=== PATIENT | female | born 1980 | race Hispanic/Latino ===

== ENCOUNTER 2017-07-10 09:38 | Day surgery (SDC) | payer OTHER ==
[2017-07-10 10:18] VITALS: BMI 32.5
[2017-07-10 10:40] VITALS: BP 107/65; TEMP 97.9
--- NOTE | 2017-07-10 12:20 | PDOC.LDHP ---
Labor and Delivery H&P Chief complaint: other (deceleration noted in PNC clinic) HPI: 36 yo @ 37.4 weeks by 1TUS at 10wks with pmhx of SLE and antiphospholipid syndrome diagnosed during current , presents from [facility] d/t a late deceleration during pt's BPP/NST apt today, BPP was normal. OB HX: 1st : IUFD @ 40weeks 2nd-6th pregnancies: with scheduled inductions. 7th (current): Mom diagnosed with SLE and APS on lovenox and aspirin, baby otherwise healthy with normal ultrasounds Current gestational age (weeks): 37 (37.4) Due date: 07/27/16 Dating criteria: last menstrual period, first trimester ultrasound (10.4weeks, c /w LMP) Grav: 7 (grand multiparity) Para: 6 ([id number]) OB History Details: see above Current complications: other (hx of IUFD, current mom diagnosed with SLE and APS) Past Medical History: SLE APS --on lovenox and aspirin Current medications: pre- vitamins, other (lovenox and aspirin) Previous surgical history: none Allergies/Adverse Reactions: Allergies Allergy/AdvReac Type Severity Reaction Status Date / Time No Known Drug Allergies Allergy Verified 07/10/17 10:22 Social history: none - Physical Exam Vital signs reviewed and normal: yes General: NAD, resting Heart: RRR Lungs: CTAB Abdomen: gravid Extremeties: no edema FHT: category 1 [place] contractions every: irritability, not having active painful contractions - OB Labs Blood type: A RH: positive Antibody Screen: negative HIV: negative RPR: negative HEPSAg: unknown 1 hour GCT: positive 3 hour GTT: negative GBS: unknown Rubella: immune - Assessment 36 @37.4 weeks by 10.4wk 1TUS c/w LMP presents from [facility] for a late deceleration during pt's NST/BPP apt today, here for prolonged monitoring. - Plan -: Monitor mom and baby for four hours. Provide Mom with a normal diet. Okay to discharge pending strip. So far the strip has been a category 1 with accelerations. Consider dc of aspirin since mom is over 36 weeks. Plan for induction one week prior to due date, which would place the induction on 2016.
--- NOTE | 2017-07-12 00:54 | PRG ---
DATE OF SERVICE: 07/10/2017 ATTENDING NOTE At the time of presentation, Ms. Zarco is a 36-year-old 7, para 6 female at 36 weeks, who was diagnosed with antiphospholipid antibody syndrome. She was undergoing her biophysical profile at Clinic and had a total BPP of 10 out of 10, but one late deceleration was noted. The patient was sent for prolonged monitoring. Her complete JOSÉ MANUEL was 16. The patient was seen in conjunction with the resident. Please see their note. The patient had 4 hours of category 1 tracing. She appreciated good movement. She was discharged to home with routine obstetric precautions. RENETTA
== END 2017-07-10 14:50 | disposition home or self-care (01) ==
LOC: L&D/OP 09:38
PROVIDERS: ATTEND Obstetrics & Gynecology Obstetrics
DX: O76 Abnormality in fetal heart rate and rhythm complicating labor and delivery (principal); M32.9 Systemic lupus erythematosus, unspecified; O99.113 Other diseases of the blood and blood-forming organs and certain disorders involving the immune mechanism complicating pregnancy, third trimester; D68.61 Antiphospholipid syndrome; Z3A.37 37 weeks gestation of pregnancy; Z79.01 Long term (current) use of anticoagulants; Z79.82 Long term (current) use of aspirin; Z79.899 Other long term (current) drug therapy
CPT/HCPCS: 99282

== ENCOUNTER 2017-07-22 13:48 | Inpatient (IN) | payer MEDICAID, OTHER, SELFPAY ==
[2017-07-22] MEDS ORDERED: Promethazine HCl 25 MG/ML VIAL IM PRN (22:52)
[2017-07-22] MEDS ORDERED: Ondansetron HCl/PF 4 MG/2 ML Vial IVP PRN (22:52)
[2017-07-22] MEDS ORDERED: Acetaminophen 500 MG TAB PO PRN (22:52)
[2017-07-22] MEDS ORDERED: Diphenoxylate HCl/Atropine Tablet PO PRN (22:52)
[2017-07-22] MEDS ORDERED: HYDROcodone/Acetaminophen 5/325 mg Tablet PO PRN ×2 (22:52)
[2017-07-22] MEDS ORDERED: Misoprostol 200 MCG TAB PR PRN (22:52)
[2017-07-22] MEDS ORDERED: Lidocaine 1% (PF) 30 ML VIAL SC PRN (22:52)
[2017-07-22] MEDS ORDERED: Carboprost 250 MCG/ML AMP IM PRN (22:52)
[2017-07-22] MEDS ORDERED: LR / Pitocin 40 units/1000 ml 1,000 ML IV PRN (22:52)
[2017-07-22] MEDS ORDERED: Methylergonovine 0.2 MG/ML VIAL IM PRN (22:52)
[2017-07-22 23:05] VITALS: BMI 32.8
[2017-07-22] MEDS ORDERED: LR 500 ML/Oxytocin 10 units 500 ML IV SCH (23:15)
[2017-07-22] MEDS: Lactated Ringer's 1,000 ML IV SCH (23:31)
[2017-07-23 00:06] LABS: Hemoglobin 11.7 g/dL (12.0-16.0); Mean Corpuscular HGB CONC 32.8 g/dL (32.0-36.0); Mean Corpuscular Hemoglobin 27.8 pg (27.0-31.0); Mean Corpuscular Volume 84.7 fl (81.0-99.0); Mean Platelet Volume 6.7 fL (7.4-10.4); Platelet Count 442 thou/uL (130-400); RBC Distribution Width 13.2 % (11.5-14.5); Red Blood Cell (RBC) Count 4.19 mill/uL (4.20-5.40); White Blood Cell (WBC) Count 11.9 thou/uL (4.8-10.8)
[2017-07-23 00:37] LABS: Glucose 174 mg/dL (70-105)
[2017-07-23 00:48] LABS: Syphilis Antibody Nonreactive (Nonreactive); Syphilis Antibody Index 0.07 S/CO (<1.00 Non-Reactive)
[2017-07-23 00:49] LABS: HBSAg Index 0.25 S/CO (0-0.99); Hep B Surf Ag Non-Reactive S/CO (NonReactive)
--- NOTE | 2017-07-23 04:00 | PDOC.LDPN ---
Labor & Delivery Progress Note - Subjective Subjective: painful contractions - Objective Vital signs reviewed and normal: yes General: breathing through contractions Dilation: 4 Effacement: 50% Station: -2 FHT: category 1 [place] contractions every: every 3 minutes Plan: continue plan of care, pitocin for augmentation <Pamela Feldman - Last Filed: 07/23/17 03:59> Attending Addendum - Attending Addendum I personally evaluated the patient and discussed the management with Dr. Feldman I agree with the History, Examination, Assessment and Plan documented above with any addition or exceptions noted below. 36 yo female at 39.3 wks by LMP/10.4 wk sono admitted for IOL 2/2 APLS and hx of IUFD at 40 wks. Now 4 cm. Continue pit per protocol. Repeat exam prn or 4 hours. If unchanged AROM and IUPC placement. A1GDM with elevated glucose on admission. Will continue accuchecks. Add SSI vs insulin drip to keep glucose around 100 for active labor. Will notify NICU of complications related to . Miso in room. Blood ready. Send placenta. ABrayMD <Karmen Newell - Last Filed: 07/23/17 07:35>
--- NOTE | 2017-07-23 04:30 | PDOC.LDHP ---
Labor and Delivery H&P HPI: 36 yo @ 39.2 wks with antiphospholipid antibody syndrome and glucose intolerance presents for induction. Pt has been on lovenox and aspirin daily. She last took her lovenox on Friday at noon. Denies vaginal bleeding, fluid loss , or discharge. Endorses intermittent contractions. OB hx: 1st : IUFD 3 boys and 2 girls, uncomplicated, 's [employer] Hx: Last pap: NILM and negative for HPV Current gestational age (weeks): 39 (39.2) Due date: 07/27/17 Dating criteria: first trimester ultrasound Grav: 7 Para: 6 ([id number]) OB History Details: see above Current complications: other (Antiphospholipid antibody syndrome, glucose intolerance-diet controlled) Current medications: pre-bret vitamins, other (lovenox, aspirin) Previous surgical history: none Social history: none - Physical Exam Vital signs reviewed and normal: yes General: NAD Heart: RRR Lungs: CTAB Abdomen: gravid Extremeties: no edema FHT: category 1 (accels) [place] contractions every: intermittant - Vaginal Exam cm dilated: 4 Effacement: 50% Station: -2 - OB Labs Blood type: A RH: positive Antibody Screen: negative HIV: negative RPR: negative HEPSAg: negative 1 hour GCT: positive 3 hour GTT: negative (glucose intolerance, diet controlled) GBS: negative Additional Labs: Cr: .8 AST 17 H/H 1235 Plt: 246 Pr/Cr .079 complement c3 129 (nl) complement c4 21 (nl) ssa/ssb antibody: negative dsdna: negative gonorrhea/chlamydia: negative antiphospholipid antibody IgG and IgM: negative anticardiolipin: negative beta-2 glycoprotein IgM: positive X 2 uric acid: 2.8 1 hr glucose: 161 3 hr: fasting 83, 1 hr 200, 2 hour 139, 3 hour 86 - Assessment 36 yo with antiphospholipid antibody syndrome presents for a medically indicated induction, with a gaines score of 7. - Plan -: Plan: pitocin for induction, labor checks every 4 hours <Pamela Feldman - Last Filed: 07/23/17 04:26> <Karmen Newell - Last Filed: 07/23/17 07:25> Allergies/Adverse Reactions: Allergies Allergy/AdvReac Type Severity Reaction Status Date / Time No Known Drug Allergies Allergy Verified 07/22/17 22:55 Attending Addendum - Attending Addendum I personally evaluated the patient and discussed the management with Dr. Feldman I agree with the History, Examination, Assessment and Plan documented above with any addition or exceptions noted below. 36 yo female at 39.2 wks by LMP/10.4 wk sono admitted for IOL 2/2 APLS and hx of IUFD at 40 wks. Cephalic. EFW 8 to 8.5 lbs. IOB and anatomy reviewed. 3T negative. GBS negative. Favorable cervix. Gaines of 7. Will start pitocin. Repeat exam prn or in 4 hours. Consider AROM at next exam. On ASA. Has been off Lovenox since 07/21/17 at 12:00. No side effects. Will restart either 4 to 6 hours depending on delivery type and continue for 6 wks pp. A1GDM check glucose at admission and continue as indicated. RODERICK Riggs <Karmen Newell - Last Filed: 07/23/17 07:25>
[2017-07-23] MEDS: Lactated Ringer's 1,000 ML IV SCH (04:46)
--- NOTE | 2017-07-23 05:00 | PDOC.LDHP ---
Labor and Delivery H&P Allergies/Adverse Reactions: Allergies Allergy/AdvReac Type Severity Reaction Status Date / Time No Known Drug Allergies Allergy Verified 07/22/17 22:55
--- NOTE | 2017-07-23 06:54 | PDOC.LDPN ---
Labor & Delivery Progress Note - Subjective Subjective: comfortable - Objective Vital signs reviewed and normal: yes General: NAD, resting Uterine fundus: non tender SVE: 06:35 Dilation: 4 Effacement: 50% Station: -3 FHT: category 1, variability present [place] contractions every: q2-3 min - Assessment (1) Elective induction of labor planned Code(s): [id number] - Current Visit: Yes Status: Acute Comment: @ 39.2 wks presents for IOL for Antiphospholipid syndrome with history of stillbirth -Started on pitocin; currently at 18 -4/50/-3 at 6:35 -Recheck in 1 hour and consider amniotomy and IUPC placement -Patient d/c'd lovenox for induction -Continue ASA (2) Antiphospholipid antibody syndrome complicating Code(s): O99.119 - OT DIS OF BLD/BLD-FORM ORG/IMMUN MECHNSM COMP PREG,UNSP TRI ; D68.61 - ANTIPHOSPHOLIPID SYNDROME Current Visit: Yes Status: Acute Comment: -Here for IOL at 39.2 wks -Lovenox d/c'd for IOL -Continue ASA -Hx of stillbirth (3) Glucose intolerance (impaired glucose tolerance) Code(s): R73.02 - IMPAIRED GLUCOSE TOLERANCE (ORAL) Current Visit: Yes Status: Acute Comment: -diet controlled -BG 174 on admission Plan: continue plan of care <Leisa Peña - Last Filed: 07/23/17 06:49> Attending Addendum - Attending Addendum I personally evaluated the patient and discussed the management with Dr. Peña I agree with the History, Examination, Assessment and Plan documented above with any addition or exceptions noted below. 36 yo female at 39.3 wks by LMP/10.4 wk sono admitted for IOL 2/2 APLS and hx of IUFD at 40 wks. Remains unchanged since last SVE. Continue pit per protocol. Repeat exam in 1 hour. If unchanged AROM and IUPC placement. A1GDM with elevated glucose on admission. Will continue accuchecks. Add SSI vs insulin drip to keep glucose around 100 for active labor. Will notify NICU of complications related to . Miso in room. Blood ready. Send placenta. ABrayMD <Karmen Newell - Last Filed: 07/23/17 07:33>
--- NOTE | 2017-07-23 07:50 | PDOC.LDPN ---
Labor & Delivery Progress Note - Subjective Subjective: painful contractions - Objective Vital signs reviewed and normal: yes General: breathing through contractions Uterine fundus: non tender Dilation: 5 Effacement: 50% Station: -2 FHT: category 1 (140/mod/no accel/no decel) [place] contractions every: 2-4 min AROM: bloody fluid IUPC placed: yes - Assessment (1) Elective induction of labor planned Code(s): [id number] - Current Visit: Yes Status: Acute Comment: @ 39.2 wks presents for IOL for Antiphospholipid syndrome with history of stillbirth -Started on pitocin; currently at 18 -Patient d/c'd lovenox for induction -Continue ASA (2) Antiphospholipid antibody syndrome complicating Code(s): O99.119 - OTH DIS OF BLD/BLD-FORM ORG/IMMUN MECHNSM COMP PREG,UNSP TRI ; D68.61 - ANTIPHOSPHOLIPID SYNDROME Current Visit: Yes Status: Acute Comment: -Here for IOL at 39.2 wks -Lovenox d/c'd for IOL -Continue ASA -Hx of stillbirth (3) Glucose intolerance (impaired glucose tolerance) Code(s): R73.02 - IMPAIRED GLUCOSE TOLERANCE (ORAL) Current Visit: Yes Status: Acute Comment: -diet controlled -BG 174 on admission, 112 on recheck -Continue 1-2 hr accuchecks with mild sliding scale Plan: pitocin for augmentation <Shelley Olivera - Last Filed: 07/23/17 09:31> Attending Addendum - Attending Addendum I personally evaluated the patient and discussed the management with Dr. Olivera. I agree with the History, Examination, Assessment and Plan documented above with any addition or exceptions noted below. Induced Labor tolerated. Category 1 strip. Continue active mgt as above. <Bennett Samaniego - Last Filed: 07/24/17 09:59>
--- NOTE | 2017-07-23 09:33 | PDOC.LDPN ---
Labor & Delivery Progress Note - Subjective Subjective: painful contractions - Objective Vital signs reviewed and normal: yes General: breathing through contractions Uterine fundus: non tender Dilation: 7 Effacement: 90% Station: -1 FHT: category 1 (140/mod/no accel/early decel) [place] contractions every: 1-4 min - Assessment (1) Elective induction of labor planned Code(s): [id number] - Current Visit: Yes Status: Acute Comment: @ 39.2 wks presents for IOL for Antiphospholipid syndrome with history of stillbirth -On pitocin -Patient d/c'd lovenox for induction -Continue ASA (2) Antiphospholipid antibody syndrome complicating Code(s): O99.119 - OTH DIS OF BLD/BLD-FORM ORG/IMMUN MECHNSM COMP PREG,UNSP TRI ; D68.61 - ANTIPHOSPHOLIPID SYNDROME Current Visit: Yes Status: Acute Comment: -Here for IOL at 39.2 wks -Lovenox d/c'd for IOL -Continue ASA -Hx of stillbirth (3) Glucose intolerance (impaired glucose tolerance) Code(s): R73.02 - IMPAIRED GLUCOSE TOLERANCE (ORAL) Current Visit: Yes Status: Acute Comment: -diet controlled -BG 174 on admission, 112 on recheck -Continue 1-2 hr accuchecks with mild sliding scale
[2017-07-23] MEDS ORDERED: Ondansetron HCl/PF 4 MG/2 ML Vial IVP PRN (11:18)
[2017-07-23] MEDS ORDERED: Acetaminophen/Codeine 30-300mg Tablet PO PRN (11:18)
[2017-07-23] MEDS ORDERED: Benzocaine/Menthol 20-0.5% 60 ML CAN TOP PRN (11:18)
[2017-07-23] MEDS ORDERED: Preparation H Ointment 28 GM TUBE PR PRN (11:18)
[2017-07-23] MEDS ORDERED: Bisacodyl 10 MG SUPP PR PRN (11:18)
[2017-07-23] MEDS ORDERED: LR / Pitocin 40 units/1000 ml 1,000 ML IV SCH (11:18)
[2017-07-23] MEDS ORDERED: Milk Of Magnesia 30 ML UDCUP PO PRN (11:18)
[2017-07-23] MEDS ORDERED: Lanolin Ointment 7 GM TUBE TOP PRN (11:18)
[2017-07-23] MEDS ORDERED: Adacel (T-DAP) 0.5 ML VIAL IM ONE (11:18)
[2017-07-23] MEDS ORDERED: Ibuprofen 800 MG TAB PO SCH (14:00)
[2017-07-23] MEDS: Ferrous Sulfate 325 MG TAB PO SCH (15:13)
[2017-07-23] MEDS: Docusate Calcium (SURFAK) 240 MG CAP PO SCH (22:17)
[2017-07-23] MEDS: Enoxaparin Sodium 40 MG/0.4 ML SYRINGE SC SCH (22:18)
[2017-07-23] MEDS: HYDROcodone/Acetaminophen 5/325 mg Tablet PO PRN (22:21)
--- NOTE | 2017-07-24 06:34 | DN-2 ---
DELIVERING PHYSICIAN: Shelley Olivera M.D. MEDICAL PHYSICIAN: ATTENDING PHYSICIAN: Bennett Samaniego M.D. PROCEDURE: Spontaneous vaginal delivery. ANESTHESIA: None. ESTIMATED BLOOD LOSS: 200 mL PREOPERATIVE DIAGNOSES: 1. Term intrauterine in labor. 2. Antiphospholipid antibody syndrome. 3. Glucose intolerance. 4. Advanced maternal age. POSTOPERATIVE DIAGNOSES: 1. Term intrauterine , delivered. 2. Antiphospholipid antibody syndrome. 3. Glucose intolerance. 4. Advanced maternal age. INDICATION: A 36-year-old female, -0-0-5, now P7-0-0-6 at 39 weeks and 2 days who delivered a v iable male infant at 0942. Following an uneventful antepartum course, a vigorous male was delivered over an intact perineum in the ERIC position. Anterior shoulder and then remainder of body delivered. Nuchal cord was noted and removed and reduced easily. The head was held down and mouth and nares w ere bulb suctioned. Cord clamped and cut after delayed cord clamping and cord blood collected. Plac enta delivered intact with 3-vessel cord noted. Fundal massage was performed and the fundus was firm . The cervix and vagina were inspected and found to be free of lacerations. went to nursery in good condition for routine care. Apgars were 8 and 8 at 1 and 5 minutes, respectively. T he patient tolerated the delivery well and went to after routine recovery care.
[2017-07-24] MEDS: HYDROcodone/Acetaminophen 5/325 mg Tablet PO PRN ×2 (06:58→15:21)
[2017-07-24] MEDS ORDERED: Enoxaparin Sodium 40 MG/0.4 ML SYRINGE SC SCH (09:00)
[2017-07-24] MEDS: Docusate Calcium (SURFAK) 240 MG CAP PO SCH ×2 (09:09→21:22)
[2017-07-24] MEDS: Ibuprofen 600 MG TAB PO SCH ×2 (09:09→21:22)
[2017-07-24] MEDS: Ferrous Sulfate 325 MG TAB PO SCH ×2 (09:09→16:29)
--- NOTE | 2017-07-24 10:38 | PDOC.PP ---
Post Progress Note Post Day #: 1 PO intake tolerated: yes Flatus: yes Ambulation: yes Vital Signs (12 hours) Temp Pulse Resp BP 07/24/17 07:44 98.2 F 75 20 105/57 L 07/24/17 07:40 98.2 F 75 20 07/24/17 04:40 98.0 F 68 18 94/54 L 07/24/17 00:30 98.0 F 66 20 106/52 L Weight Weight 83.915 kg - Physical Examination General: NAD Cardiovascular: no m/r/g, RRR Respiratory: clear to auscultation bilaterally, non-labored breathing Abdominal: + bowel sounds, lochia (minimal), no distention, appropriately TTP Fundus firm & at: umbilicus Extremities: negative homans (B) Neurological: no gross focal deficits Psychiatric: A&Ox3, normal affect Result Diagrams: 07/22/17 23:30 07/22/17 23:30 Additional Labs: Post Labs Blood Type A POSITIVE 07/22/17 23:30 Hep Bs Antigen Non-Reactive S/CO (NonReactive) 07/22/17 23:30 (1) Elective induction of labor planned Code(s): [id number] - Status: Acute (2) Antiphospholipid antibody syndrome complicating Code(s): O99.119 - OTH DIS OF BLD/BLD-FORM ORG/IMMUN MECHNSM COMP PREG,UNSP TRI ; D68.61 - ANTIPHOSPHOLIPID SYNDROME Status: Acute (3) Glucose intolerance (impaired glucose tolerance) Code(s): R73.02 - IMPAIRED GLUCOSE TOLERANCE (ORAL) Status: Acute - Assessment/Plan 1. PPD #1 - Meeting all PP milestones - Feels overall poorly and not confident with today - Appreciate Zoe's assistance - Consider D/C later today if pain well-controlled and no issues with infant 2. 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 Glucose intolerance - Accuchecks WNL - Will D/C 4. Grand multiparity - Discussed further desire for childbearing and considering LARC - Will re-address at PP visit in 2 weeks
[2017-07-24] MEDS: Enoxaparin Sodium 40 MG/0.4 ML SYRINGE SC SCH (21:22)
--- NOTE | 2017-07-25 06:18 | PDOC.PP ---
Post Progress Note Post Day #: 2 Subjective: Feeling well. No concerns or complaints this morning and feels is going slightly better. She would like to meet with Zoe again today if possible. PO intake tolerated: yes Flatus: yes Ambulation: yes Vital Signs (12 hours) Temp Pulse Resp BP 07/24/17 19:17 98.6 F 71 18 107/54 L Weight Weight 83.915 kg - Physical Examination General: NAD Cardiovascular: no m/r/g, RRR Respiratory: clear to auscultation bilaterally Abdominal: + bowel sounds, lochia (scant), no distention, appropriately TTP Extremities: negative homans (B) Neurological: no gross focal deficits Psychiatric: A&Ox3, normal affect Result Diagrams: 07/22/17 23:30 07/22/17 23:30 Additional Labs: Post Labs Blood Type A POSITIVE 07/22/17 23:30 Hep Bs Antigen Non-Reactive S/CO (NonReactive) 07/22/17 23:30 (1) Elective induction of labor planned Code(s): [id number] - Status: Acute (2) Antiphospholipid antibody syndrome complicating Code(s): O99.119 - OTH DIS OF BLD/BLD-FORM ORG/IMMUN MECHNSM COMP PREG,UNSP TRI ; D68.61 - ANTIPHOSPHOLIPID SYNDROME Status: Acute (3) Glucose intolerance (impaired glucose tolerance) Code(s): R73.02 - IMPAIRED GLUCOSE TOLERANCE (ORAL) Status: Acute - Assessment/Plan 1. PPD #2 - Meeting all PP milestones - Feeling better today and more confident with breast/bottle feeding - Appreciate Zoe's assistance - Consider D/C later today if pain well-controlled and no issues with 2. APL syndrome - Continue qHS lovenox 40mg x6w pp - Continue ASA 81mg x6w pp - Discussed need for [facility] follow-up with patient today - Will give information on [facility] and she has been seen at [facility] in the past 3. Glucose intolerance - Accuchecks WNL 4. Grand multiparity - Discussed further desire for childbearing and considering LARC - Will re-address at PP visit in 2 weeks
[2017-07-25 07:46] VITALS: BP 101/56; TEMP 98.5
[2017-07-25] MEDS: Docusate Calcium (SURFAK) 240 MG CAP PO SCH (08:39)
[2017-07-25] MEDS: Ferrous Sulfate 325 MG TAB PO SCH (08:39)
[2017-07-25] MEDS: Ibuprofen 600 MG TAB PO SCH (08:39)
[2017-07-25 12:52] LABS: HIV (1/2) Antibody/Antigen Non-Reactive (NonReactive); HIV 1/2 INDEX 0.16 S/CO (<1.00); Hep C IgG Ab Non-Reactive (NonReactive); Hep C Index 0.19 S/CO (0-0.79)
== END 2017-07-25 17:10 | disposition home or self-care (01) | DRG 775 ==
LOC: L&D 22:24 → 3SW 07-23 12:19
PROVIDERS: ADMIT Student in an Organized Health Care Education/Training Program; ATTEND Student in an Organized Health Care Education/Training Program
PROC: 10E0XZZ Delivery of Products of Conception, External Approach (ICD-10-PCS; principal; 2017-07-23)
PROC: 3E033VJ Introduction of Other Hormone into Peripheral Vein, Percutaneous Approach (ICD-10-PCS; 2017-07-23)
DX: O99.12 Other diseases of the blood and blood-forming organs and certain disorders involving the immune mechanism complicating childbirth (principal); D68.61 Antiphospholipid syndrome; Z3A.39 39 weeks gestation of pregnancy; Z37.0 Single live birth; O24.429 Gestational diabetes mellitus in childbirth, unspecified control
CPT/HCPCS: 36416; 82947; 85027; 86780; 86803; 86850; 86900; 86901; 87340; 87389; 88307; J1650; J2001; J7120

== ENCOUNTER 2020-04-28 08:18 | Outpatient (CLI) | payer OTHER ==
[2020-04-28 17:21] LABS: SARS-CoV-2 MS2 Positive; SARS-CoV-2 N Gene Negative; SARS-CoV-2 S Gene Negative; SARS-CoV-2 by NAA Not Detected (NotDetected); SARS-CoV-2 orf1ab Negative
== END 2020-04-28 08:19 | disposition home or self-care (01) ==
LOC: LABBT 08:18
PROVIDERS: ATTEND Family Medicine
DX: Z20.828 Contact with and (suspected) exposure to other viral communicable diseases (principal)
CPT/HCPCS: 87635; U0003

== ENCOUNTER 2020-05-01 18:00 | Inpatient (IN) | payer MEDICAID, OTHER, SELFPAY ==
[2020-05-01 21:20] VITALS: BMI 32.2
[2020-05-01] MEDS ORDERED: Promethazine HCl 25 MG/ML VIAL IM PRN (22:22)
[2020-05-01] MEDS ORDERED: Acetaminophen 500 MG TAB PO PRN (22:22)
[2020-05-01] MEDS ORDERED: Lidocaine 1% (PF) 30 ML VIAL SC PRN (22:22)
[2020-05-01] MEDS ORDERED: hydrALAZINE 20 MG/ML VIAL SLOW IVP PRN (22:22)
[2020-05-01] MEDS ORDERED: Ibuprofen 800 MG TAB PO PRN (22:22)
[2020-05-01] MEDS ORDERED: NS / Oxytocin 40 units/1000ml 1,000 ML IV PRN (22:22)
[2020-05-01] MEDS ORDERED: Ondansetron PF 4 MG/2 ML Vial IVP PRN (22:22)
[2020-05-01] MEDS ORDERED: Penicillin G 2.5 MILL.units 2.5 MILL.UNITS in Premix Bag 1 BAG IVPB SCH (22:30)
[2020-05-01] MEDS ORDERED: Penicillin G Potassium 5 MILL.UNITS in Sodium Chloride 0.9% 100 ML IVPB SCH (22:30)
[2020-05-01] MEDS: Lactated Ringer's 1,000 ML IV SCH (22:55)
--- NOTE | 2020-05-01 23:09 | PDOC.FPROB ---
FMR OB H&P: HPI - History of Present Illness Chief Complaint: mIOL due to APLS Indentification: @ 37 wga by LMP/9.5 wk sono History of Present Illness: Patient presents to L&D today for IOL. She reports that she is feeling well and denies feeling contractions. She endorses movement. She reports that she was told to stop taking her Lovenox 24 hrs prior to delivery and she last took it on 04/30. She denies vaginal bleeding, LOF, headache, change in vision, dysuria. Patient is GBS positive and has A2GDM on metformin. Patient is also AMA and has been taking daily aspirin this . Primary Care Physician: PNC: Jeremiah FMR OB H&P: Current - Care : 8 Para: 6 Gestational age: 37 Due date: 05/22/2020 Dating Criteria: LMP/9.5 wk sono Course/Complications: APLS, AMA, A2GDM, Hx of IUFD - OB Labs Blood type: A RH: positive Antibody Screen: negative RPR: negative HepBsAg: negative Rubella: immune Gonorrhea: negative Chlamydia: negative 3 hour GTT: 105/179/127 A1c: 5.6 H&H: 13.2/36.6 Platelets: 246 FMR OB H&P: History - Past Medical History PMH: Antiphospholipid syndrome (APLS), Lupus? pt has not been seen by rheum since 2016 - OB History OB History: 7 term 1 IUFD at 40 wga Hx of macrosomia, hx of IUFD, hx of A1GDM in previous pregnancies, AMA Denies PPH, shoulder dystocia - [employer] History [employer] History: Menarche: 14 Menstrual frequency 5 days Denies STIs - Surgical History Sx History: [place] teeth - Social History Social History: Denies t/a/d - Family History Family History: HTN, RA, DM, thyroid, childhood ca FMR OB H&P: Medications - Current Home Medications: Medication Instructions Recorded Confirmed Type Vit,Calc76/Iron/Folic 1 tab PO DAILY 07/10/17 05/01/20 History [Prenatabs Rx Tablet] Aspirin [Aspir-Low] 81 mg PO DAILY #30 tablet. 07/25/17 05/01/20 Rx Enoxaparin Sodium [Lovenox] 40 mg SC DAILY #30 syringe 07/25/17 05/01/20 Rx metFORMIN [Glucophage] 2 tab PO BID 05/01/20 05/01/20 History Allergies/Adverse Reactions: Allergies Allergy/AdvReac Type Severity Reaction Status Date / Time No Known Drug Allergies Allergy Verified 07/22/17 22:55 FMR OB H&P: ROS - Review of Systems General: denies: fever/chills, weight/appetite/sleep changes Eyes: denies: vision changes, double vision ENT: denies: nasal congestion, rhinorrhea Cardiovascular: denies: chest pain, palpitation, edema Respiratory: denies: cough, congestion, shortness of breath Gastrointestinal: denies: abdominal pain, diarrhea, constipation Genitourinary (Female): denies: dysuria, vaginal discharge, vaginal bleeding Musculoskeletal: denies: pain, swelling Neurologic: denies: numbness, headache Integumentary: denies: itching, rash Psychological: denies: depression, anxiety FMR OB H&P: Vital Signs - Maternal Vital signs: BP: 116/55 P: 77 RR: 18 Temp: 98.3 - Heart Tones Baseline: 135 Variability: moderate Acceleration: present Deceleration: absent Category: category 1 [place] contractions every: minimal; ~2 over 20 min FMR OB H&P: Physical Exam - Physical Exam General: NAD, awake, alert and oriented HEENT: normocephalic and atraumatic, EOMI, grossly normal vision, grossly normal hearing Neck: supple, FROM Heart: RRR, normal S1/S2, no murmurs/rubs/gallops General: CTAB, no respiratory distress, good air movement Abdomen: gravid, non-tender Musculoskeletal: FROM in all four extremities Neurological: cranial nerves II through XII intact, sensation to pain,touch and proprioception grossly normal Skin: no rash, no jaundice Lymphatic: no unusual bruising or bleeding, no purpura, no petechia Psychiatric: intact recent and remote memory, good judgement and insight, normal mood and affect - Pelvic Exam Vulva: normal hair distribution, appropriate pauline stage SVE: 08/07/-2 Gaines score: 4 Membranes: intact Presentation: vertex FMR OB H&P: A/P - Problem List (1) Intrauterine Current Visit: Yes Status: Acute Code(s): Z34.90 - ENCNTR FOR SUPRVSN OF NORMAL , UNSP, UNSP TRIMESTER (2) Gestational diabetes Current Visit: Yes Status: Acute Code(s): O24.419 - GESTATIONAL DIABETES MELLITUS IN , UNSP CONTROL (3) Antiphospholipid antibody syndrome complicating Current Visit: Yes Status: Acute Code(s): O99.119 - OTH DIS OF BLD/BLD-FORM ORG/IMMUN MECHNSM COMP PREG,UNSP TRI; D68.61 - ANTIPHOSPHOLIPID SYNDROME Disposition: 39 yo at 37 wga who presents to L&D for mIOL due to APLS mIOL for antiphospholipid syndrome - not currently feeling contractions, toco shows ~2 contractions over 20 minutes - SVE: 08/07/-2 @ 2230 - Gaines score: 4, posterior and soft - Fetus: vertex confirmed on US - FHT: 135, moderate variability, + accels, no decels - Cytotec placed ~2330 - next check at 0330 APLS - patient has been on lovenox this , advised to hold dosing 24 hours prior to delivery - last dose taken: 04/30 - will need lovenox for 6 wks PP per records A2GDM - on metformin - Q4Hr glucose checks during latent labor, Q1Hr during active - Glucose on admission: 86 Hx of Macrosomia - aware - [place] of 45% on 04/18 Hx of IUFD - aware AMA - aware Discussion: This H&P was discussed with Dr. Willsi who agrees with the above documentation and plan. Addendum - Attending - Attending Attestation Date/Time: 05/02/20 3551 I personally evaluated the patient and discussed the management with Dr. Alatorre. I agree with the History, Examination, Assessment and Plan documented above with any addition or exceptions noted below. mIOL for APLS, poorly controlled A2DM, h/o IUFD upon MFM recs. Cervical ripening.
[2020-05-01] MEDS ORDERED: Misoprostol 100 MCG TAB VAG SCH (23:15)
[2020-05-01 23:19] LABS: Hemoglobin 13.2 g/dL (12.0-16.0); Mean Corpuscular Hemoglobin 31.4 pg (27.0-31.0); Mean Corpuscular Volume 87.3 fL (78.0-98.0); Mean Platelet Volume 8.8 fL (7.4-10.4); Platelet Count 246 thou/uL (130-400); RBC Distribution Width 12.1 % (11.5-14.5); Red Blood Cell (RBC) Count 4.19 mill/uL (4.20-5.40); White Blood Cell (WBC) Count 9.4 thou/uL (4.8-10.8)
[2020-05-01 23:50] LABS: HBSAg Index 0.16 S/CO (0-0.99); Hep B Surf Ag Non-Reactive S/CO (NonReactive); Syphilis Antibody Nonreactive (Nonreactive); Syphilis Antibody Index 0.05 S/CO (<1.00 Non-Reactive)
[2020-05-02] MEDS ORDERED: NS / Oxytocin 40 units/1000ml 1,000 ML ONE ×2 (02:51→16:21)
[2020-05-02] MEDS ORDERED: Lidocaine 1% (PF) 30 ML VIAL ONE ×2 (02:51→16:21)
[2020-05-02] MEDS: Penicillin G 2.5 MILL.units 2.5 MILL.UNITS in Premix Bag 1 BAG IVPB SCH ×3 (02:53→18:33)
--- NOTE | 2020-05-02 03:40 | PDOC.OBLPN ---
FMR OB Labor PN: Subj - Interval History Chief Complaint: mIOL due to APLS Indentification: @ 37.1 wga by LMP/9.5 wk sono Interval History: Resting comfortably FMR OB Labor PN: Obj - Maternal Vital signs: BP: 110/62 HR: 71 RR: 16 Tmax: 98.8 FMR OB Labor PN: Exam - Physical Exam General: NAD HEENT: normocephalic and atraumatic, grossly normal vision, grossly normal hearing Neck: supple, FROM General: no respiratory distress Musculoskeletal: normal gait and station, FROM in all four extremities Neurological: sensation to pain,touch and proprioception grossly normal Lymphatic: no unusual bruising or bleeding, no purpura, no petechia - Pelvic Exam Vulva: normal hair distribution, appropriate pauline stage SVE: 50/-2 Membranes: intact FMR OB Labor PN: Data - Labs Lab results: Laboratory Results - last 24 hr 05/01/20 05/01/20 05/01/20 23:01 23:01 23:01 WBC RBC Hgb Hct MCV MCH MCHC RDW Plt Count MPV POC Glucose Syphilis IgG/IgM Ab Nonreactive Hep Bs Antigen Non-Reactive Blood Type A POSITIVE Antibody Screen NEGATIVE 05/01/20 05/01/20 05/02/20 23:01 23:06 00:08 WBC 9.4 RBC 4.19 L Hgb 13.2 Hct 36.6 MCV 87.3 MCH 31.4 H MCHC 36.0 RDW 12.1 Plt Count 246 MPV 8.8 POC Glucose 86 85 Syphilis IgG/IgM Ab Hep Bs Antigen Blood Type Antibody Screen FMR OB Labor PN: A/P - Problem List (1) Intrauterine Current Visit: Yes Status: Acute Code(s): Z34.90 - ENCNTR FOR SUPRVSN OF NORMAL , UNSP, UNSP TRIMESTER (2) Gestational diabetes Current Visit: Yes Status: Acute Code(s): O24.419 - GESTATIONAL DIABETES MELLITUS IN , UNSP CONTROL (3) Antiphospholipid antibody syndrome complicating Current Visit: Yes Status: Acute Code(s): O99.119 - OTH DIS OF BLD/BLD-FORM ORG/IMMUN MECHNSM COMP PREG,UNSP TRI; D68.61 - ANTIPHOSPHOLIPID SYNDROME Disposition: 39 yo at 37.1 wga who presents to L&D for mIOL due to APLS mIOL for antiphospholipid syndrome - toco: q 1-3 min - SVE: 08/07/-2 @ 2230, /-2 @ 0330 - Gaines score: 4 on arrival, now 6 - Fetus: vertex confirmed on US - FHT: 145, moderate variability, + accels, no decels - Cytotec placed ~2330 - Pit ordered, will begin titrating once contractions space out - next check at 0730 APLS - patient has been on lovenox this , advised to hold dosing 24 hours prior to delivery - last dose taken: 04/30 - will need lovenox for 6 wks PP per records A2GDM - on metformin - Q4Hr glucose checks during latent labor, Q1Hr during active - Glucose: 86, 85 Hx of Macrosomia - aware - Hadlock of 45% on 04/18 Hx of IUFD - aware AMA - aware This H&P was discussed with Dr. Willis who agrees with the above documentation and plan. Discussion: Date/Time: 05/02/20338 This H&P was discussed with [] and [] who agree with the above documentation and plan. Addendum - Attending - Attending Attestation Date/Time: 05/02/20824 I personally evaluated the patient and discussed the management with Dr. Alatorre. I agree with the History, Examination, Assessment and Plan documented above with any addition or exceptions noted below. Begin pitocin when able.
[2020-05-02] MEDS ORDERED: NS w/ Oxytocin 10 units 500 ML IV SCH (03:45)
--- NOTE | 2020-05-02 08:20 | PDOC.OBLPN ---
FMR OB Labor PN: Subj - Interval History Hospital Day: 2 Chief Complaint: mIOL d/t APLS Indentification: 39 yo at 37.2 wga Interval History: Pt resting comfortably in bed. Back pain at this time. No other complaints. FMR OB Labor PN: Obj - Maternal Vital signs: BP 105/64; HR 68, RR 18, O2 98 on RA. FMR OB Labor PN: Exam - Physical Exam General: NAD HEENT: normocephalic and atraumatic Neck: supple Chest: non-tender to palpation Heart: RRR, normal S1/S2, no murmurs/rubs/gallops General: CTAB, no respiratory distress, good air movement, no wheezing, no retractions Abdomen: gravid Musculoskeletal: normal gait and station Neurological: cranial nerves II through XII intact Skin: no rash Lymphatic: no unusual bruising or bleeding Psychiatric: intact recent and remote memory, good judgement and insight, normal mood and affect - Pelvic Exam SVE: / Gaines score: 8 FMR OB Labor PN: Data - Labs Lab results: Laboratory Results - last 24 hr 05/01/20 05/01/20 05/01/20 23:01 23:01 23:01 WBC RBC Hgb Hct MCV MCH MCHC RDW Plt Count MPV POC Glucose Syphilis IgG/IgM Ab Nonreactive Hep Bs Antigen Non-Reactive Blood Type A POSITIVE Antibody Screen NEGATIVE 05/01/20 05/01/20 05/02/20 23:01 23:06 00:08 WBC 9.4 RBC 4.19 L Hgb 13.2 Hct 36.6 MCV 87.3 MCH 31.4 H MCHC 36.0 RDW 12.1 Plt Count 246 MPV 8.8 POC Glucose 86 85 Syphilis IgG/IgM Ab Hep Bs Antigen Blood Type Antibody Screen 05/02/20 05/02/20 04:01 07:45 WBC RBC Hgb Hct MCV MCH MCHC RDW Plt Count MPV POC Glucose 90 92 Syphilis IgG/IgM Ab Hep Bs Antigen Blood Type Antibody Screen FMR OB Labor PN: A/P Disposition: 39 yo at 37.2 wga who presents to L&D for mIOL due to APLS mIOL for antiphospholipid syndrome - toco: q 3 min - SVE: 08/07/2 @ 2230, /-2 @ 0330, /-1 @ 730 - Gaines score: 4 on arrival, now 8 - Fetus: vertex confirmed on US - FHT: 132, moderate variability, + accels, no decels - Cytotec placed ~2330 - Pit ordered, will begin titrating once contractions space out - next check at 1130 APLS - patient has been on lovenox this , advised to hold dosing 24 hours prior to delivery - last dose taken: 04/30 - will need lovenox for 6 wks PP per records A2GDM - on metformin - Q4Hr glucose checks during latent labor, Q1Hr during active - Glucose: 86, 85 Hx of Macrosomia - aware - Hadlock of 45% on 04/18 Hx of IUFD - aware AMA - aware Plan: Continue with current management. Pt is making progress at this time. Next check at 1130. This H&P was discussed with Dr. Milton who agrees with the above documentation and plan. Addendum - Attending - Attending Attestation Date/Time: 05/02/20 1331 I personally evaluated the patient and discussed the management with Dr. Salazar this morning. I agree with the History, Examination, Assessment and Plan documented above with any addition or exceptions noted below.
--- NOTE | 2020-05-02 11:31 | PDOC.OBLPN ---
FMR OB Labor PN: Subj - Interval History Hospital Day: 2 Chief Complaint: mIOL d/t APLS Indentification: 39 yo at 37.1 wga Interval History: Resting comfortably in bed. No complaints at this time. Can feel ctx. FMR OB Labor PN: Obj - Maternal Vital signs: BP 114/89, HR 72, RR18, 100 O2 in RA FMR OB Labor PN: Exam - Physical Exam General: NAD HEENT: normocephalic and atraumatic Neck: supple Chest: non-tender to palpation Heart: RRR, normal S1/S2, no murmurs/rubs/gallops, no edema General: CTAB, no respiratory distress, good air movement, no wheezing, no retractions Abdomen: gravid Musculoskeletal: normal gait and station Skin: no rash Lymphatic: no unusual bruising or bleeding Psychiatric: intact recent and remote memory, good judgement and insight, normal mood and affect - Pelvic Exam SVE: FMR OB Labor PN: Data - Labs Lab results: Laboratory Results - last 24 hr 05/01/20 05/01/20 05/01/20 23:01 23:01 23:01 WBC RBC Hgb Hct MCV MCH MCHC RDW Plt Count MPV POC Glucose Syphilis IgG/IgM Ab Nonreactive Hep Bs Antigen Non-Reactive Blood Type A POSITIVE Antibody Screen NEGATIVE 05/01/20 05/01/20 05/02/20 23:01 23:06 00:08 WBC 9.4 RBC 4.19 L Hgb 13.2 Hct 36.6 MCV 87.3 MCH 31.4 H MCHC 36.0 RDW 12.1 Plt Count 246 MPV 8.8 POC Glucose 86 85 Syphilis IgG/IgM Ab Hep Bs Antigen Blood Type Antibody Screen 05/02/20 05/02/20 04:01 07:45 WBC RBC Hgb Hct MCV MCH MCHC RDW Plt Count MPV POC Glucose 90 92 Syphilis IgG/IgM Ab Hep Bs Antigen Blood Type Antibody Screen FMR OB Labor PN: A/P Disposition: 39 yo at 37.1 wga who presents to L&D for mIOL due to APLS mIOL for antiphospholipid syndrome - toco: q 3-5 min - SVE: 08/07/-2 @ 2230, /-2 @ 0330, 4/70/-1 @ 730, /-1 @ 1130 - Gaines score: 4 on arrival, @ 730 had score of 8 - Fetus: vertex confirmed on US - FHT: 144, moderate variability, + accels, no decels noted - Cytotec placed ~2330 - Pit ordered, will begin titrating once contractions space out - next check @ around 1430 APLS - patient has been on lovenox this , advised to hold dosing 24 hours prior to delivery - last dose taken: 04/30 - will need lovenox for 6 wks PP per records A2GDM - on metformin - Q4Hr glucose checks during latent labor, Q1Hr during active - Glucose: 86, 85 Hx of Macrosomia - aware - Hadlock of 45% on 04/18 Hx of IUFD - aware AMA - aware Plan: Continue with current management. Pt is making progress at this time. Will consider AROM and pitocin moving forward. Next check in about 3 hours. This H&P was discussed with Dr. Milton who agrees with the above documentation and plan.
--- NOTE | 2020-05-02 14:05 | PDOC.BPN ---
- Brief Progress Note Patient is comfortable. VSS. FHTs Cat 1. Spur is spacing out and and less strong. CHecked Cervix: /-1. Discussed Pitocin vs AROM and patient is agreeable to pitocin. Will initiate pitocin.
[2020-05-02] MEDS ORDERED: Misoprostol 200 MCG TAB ONE (16:22)
[2020-05-02] MEDS ORDERED: Misoprostol 200 MCG TAB VAG PRN (17:50)
[2020-05-02] MEDS ORDERED: Ondansetron PF 4 MG/2 ML Vial IVP PRN (17:50)
[2020-05-02] MEDS ORDERED: Milk Of Magnesia 30 ML UDCUP PO PRN (17:50)
[2020-05-02] MEDS ORDERED: NS / Oxytocin 40 units/1000ml 1,000 ML IV SCH (17:50)
[2020-05-02] MEDS ORDERED: Bisacodyl 10 MG SUPP PR PRN (17:50)
[2020-05-02] MEDS ORDERED: hydrALAZINE 20 MG/ML VIAL SLOW IVP PRN (17:50)
[2020-05-02] MEDS ORDERED: Methylergonovine 0.2 MG/ML VIAL IM PRN (17:50)
[2020-05-02] MEDS ORDERED: Benzocaine-Menthol 82.5 ML CAN TOP PRN (17:50)
--- NOTE | 2020-05-02 18:08 | PDOC.OP ---
Operative Note - Operative Note Operative Note: Delivering Physician: Jeremiah Salazar Attending: Yoan, present and assisted with delivery. Procedure: Spontaneous Vaginal Delivery Anesthesia: epidural, Local for Repair EBL: 250 ml Pre-op Diagnosis: 1. Term intrauterine mIOL for antiphospholipid syndrome 2. Hx of macrosomia, hx of IUFD, hx of Type 2 gestational DM, AMA Post-op Diagnosis: 1. Term intrauterine , delivered 2. same as above Indications: A 39 y/o female G8P now 8007 presented for mIOL for APLS. Delivery Note: This is 39 yo F @ 37.1 wks who delivered a viable F infant at 16:51 on 05/02/20. Following an uneventful antepartum course, a vigorous F was delivered over an intact perineum in the occipitoanterior position. Anterior Shoulder and then remainder of the body delivered. No nuchal cord. The head was held down and mouth and nares were bulb suctioned. Cord c lamped and cut and cord blood collected. Placenta delivered in the jay position intact with a 3 vessel cord noted. Fundal massage was performed and the fundus was firm. The cervix and vagina were inspected and found to have one 1- 2cm superficial abrasion within vaginal mucosa amenable to hemostasis. went to nursery in good condition for routine care. Apgars were 9/9 at 1 & 5 minutes, respectively. Patient tolerated delivery well and went to after routine recovery/care.
[2020-05-02] MEDS: Lactated Ringer's 1,000 ML IV SCH (18:33)
[2020-05-02] MEDS: Docusate Calcium (SURFAK) 240 MG CAP PO SCH (20:42)
[2020-05-02] MEDS: Ibuprofen 800 MG TAB PO SCH (20:42)
[2020-05-03] MEDS ORDERED: Enoxaparin Sodium 40 MG/0.4 ML SYRINGE SC SCH (05:00)
[2020-05-03] MEDS: Ibuprofen 800 MG TAB PO SCH ×2 (05:49→14:32)
--- NOTE | 2020-05-03 06:46 | PDOC.OBPPN ---
FMR OB PN: Subj - Interval History Hospital Day: 2 Day: 1 Chief Complaint: None Indentification: 39YO G8 now P8007 who is PP day #1 s/p @ 37.1 WGA Interval History: Tolerating PO, passing gas, voiding normally. Pain controlled on PO meds. FMR OB PN: Obj - Maternal Vital signs: BP: 98/56 HR: 56 RR: 16 Tmax: 98.5F Pox: 97% on RA Wt: 82 kg - Urine output I&O: 05/01/20 05/02/20 05/03/20 06:59 06:59 06:59 Intake Total 2296 Output Total 472 Balance 1824 - Lochia Lochia: reportedly less than a period - Pain Management Pain scale: 0 Intervention: oral medication FMR OB PN: Exam - Physical Exam General: NAD, awake, alert and oriented HEENT: normocephalic and atraumatic, grossly normal vision, grossly normal hearing Neck: supple, FROM Heart: RRR, normal S1/S2, no murmurs/rubs/gallops, no edema General: CTAB, no respiratory distress, good air movement, no rales/rhonchi, no wheezing, no retractions Abdomen: soft, fundus(cm) (firm just above umbilicus) Musculoskeletal: normal gait and station, FROM in all four extremities Neurological: cranial nerves II through XII intact, sensation to pain,touch and proprioception grossly normal, no focal deficit Skin: no rash Psychiatric: intact recent and remote memory, good judgement and insight, normal mood and affect - Pelvic Exam : normal lochia FMR OB PN: Data - Labs Lab results: Laboratory Results - last 24 hr 05/02/20 07:45 POC Glucose 92 FMR OB PN: A/P - Problem List (1) Antiphospholipid antibody syndrome complicating Current Visit: Yes Status: Acute Code(s): O99.119 - OTH DIS OF BLD/BLD-FORM ORG/IMMUN MECHNSM COMP PREG,UNSP TRI; D68.61 - ANTIPHOSPHOLIPID SYNDROME (2) Gestational diabetes Current Visit: Yes Status: Acute Code(s): O24.419 - GESTATIONAL DIABETES MELLITUS IN , UNSP CONTROL Qualifiers: Gestational diabetes mellitus control: oral hypoglycemic-controlled Trimester: unspecified trimester Qualified Code(s): O24.415 - Gestational diabetes mellitus in , controlled by oral hypoglycemic drugs (3) Vaginal delivery Current Visit: No Status: Acute Code(s): O80 - ENCOUNTER FOR FULL-TERM UNCOMPLICATED DELIVERY Disposition: 39YO who is PP day #1 s/p @ 37.1 WGA. PP day #1 s/p term : - Pain well controlled. Tolerating PO, voiding normally, ambulating. No BM or passing gas yet but abdomen soft and nontender w/ NL bowel sounds on exam. Continue routine PP care. APLS - Patient has been on lovenox this . - Per MFM recs to continue lovenox daily through 6 weeks PP. Started 12 hrs s/p delivery. A2GDM - controlled on metformin this pregnany. All accuchecks WNLs since admission. Will d/c accuchecks PP & stop metformin. - Needs DMII screening @ 6 week PP visit. Hx of Macrosomia - aware - Hadlock of 45% on 04/18 Hx of IUFD - aware AMA - aware Plan: Consider d/c home later this evening once at least 24 hours s/p delivery vs. yesterday AM pending baby's 24hr Tbili level. Discussion: Date/Time: 05/03/20 0249 This H&P was discussed with Dr. Milton who agrees with the above documentation and plan. Addendum - Attending - Attending Attestation Date/Time: 05/03/20 7279 I personally evaluated the patient and discussed the management with Dr. Daniels. I agree with the History, Examination, Assessment and Plan documented above with any addition or exceptions noted below.
[2020-05-03] MEDS: Ferrous Sulfate 325 MG TAB PO SCH ×2 (08:36→16:21)
[2020-05-03] MEDS: Docusate Calcium (SURFAK) 240 MG CAP PO SCH (08:37)
[2020-05-03] MEDS ORDERED: Aspirin 81 mg Enteric Coated Tablet PO SCH (09:00)
[2020-05-03] MEDS ORDERED: Prenatal Vitamin 1 TAB PO SCH (09:00)
[2020-05-03 17:37] VITALS: BP 107/54; TEMP 97.9
== END 2020-05-03 19:30 | disposition home or self-care (01) | DRG 806 ==
LOC: L&D 20:50 → 3SW 05-02 18:43
PROVIDERS: ADMIT Family Medicine; ATTEND Family Medicine
PROC: 10E0XZZ Delivery of Products of Conception, External Approach (ICD-10-PCS; principal; 2020-05-02)
PROC: 10907ZC Drainage of Amniotic Fluid, Therapeutic from Products of Conception, Via Natural or Artificial Opening (ICD-10-PCS; 2020-05-02)
PROC: 3E0P7VZ Introduction of Hormone into Female Reproductive, Via Natural or Artificial Opening (ICD-10-PCS; 2020-05-02)
PROC: 3E033VJ Introduction of Other Hormone into Peripheral Vein, Percutaneous Approach (ICD-10-PCS; 2020-05-02)
DX: O99.12 Other diseases of the blood and blood-forming organs and certain disorders involving the immune mechanism complicating childbirth (principal); D68.61 Antiphospholipid syndrome; Z37.0 Single live birth; O99.824 Streptococcus B carrier state complicating childbirth; O24.425 Gestational diabetes mellitus in childbirth, controlled by oral hypoglycemic drugs; Z3A.37 37 weeks gestation of pregnancy; Z20.828 Contact with and (suspected) exposure to other viral communicable diseases
CPT/HCPCS: 36415; 36416; 85027; 86780; 86850; 86900; 86901; 87340; J1650; J2001; J2540; J2590; J3490

== ENCOUNTER 2023-04-01 14:30 | Outpatient (CLI) | payer OTHER | END 2023-04-01 14:31 | disposition home or self-care (01) | LOC: BICRAD 14:30 | PROVIDERS: ATTEND Nurse Practitioner Women's Health | DX: M53.3 Sacrococcygeal disorders, not elsewhere classified (principal) | CPT/HCPCS: 72220 ==